=== PATIENT | female | born 1965 | race Caucasian/White ===

== ENCOUNTER 2017-10-01 19:29 | Emergency (ER) | payer MEDICAID ==
[2017-10-02] MEDS: ACETAMINOPHEN 500 MG TAB PO (00:20)
[2017-10-02] MEDS: ALBUTEROL 0.083% (NEB) 2.5 MG/3 ML AMP NEB (01:20)
[2017-10-02] MEDS: IPRATROPIUM (NEB) 0.5 MG/2.5 ML AMP NEB (01:20)
== END 2017-10-02 02:49 | disposition home or self-care (01) ==
LOC: FTE 19:29
DX: J20.9 Acute bronchitis, unspecified (principal); E11.9 Type 2 diabetes mellitus without complications; F17.210 Nicotine dependence, cigarettes, uncomplicated
CPT/HCPCS: 94664; 99284-25